=== PATIENT | male | born 1950 | race Caucasian/White ===

== ENCOUNTER 2020-02-18 13:49 | Emergency (ER) | payer MEDICARE, BC ==
[2020-02-18 14:04] VITALS: BP 162/102
[2020-02-18] MEDS ORDERED: Albuterol/Ipratropium 3.0-0.5 MG/3 ML Neb Soln NEB ONE (14:09)
[2020-02-18 14:46] VITALS: PULSE 77
--- NOTE | 2020-02-18 14:54 | CR ---
EXAMINATION: Chest 1V Frontal SEX: Male AGE: 69 years CLINICAL HISTORY: 69-year-old male emergency department complaining of shortness of breath (SOB) and cough. INTERPRETATION: Abnormal. 1. Small right pneumothorax (approximately 15-25%), under some tension i.e. associated with underlying lower lobe atelectasis and slight shift of the heart/mediastinal structures away, to the left. No comparison films immediately available. 2. Borderline cardiomegaly. Cardiac pacemaker but no alveolar edema or dependent effusion. 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 3. No lung mass, hilar lymphadenopathy or focal lobar pneumonia. 4. No atelectasis/collapse. No pneumothorax on the left or pneumomediastinum. CONCLUSION: Small PNEUMOTHORAX, right lung. No heart failure or lobar pneumonia.
[2020-02-18 15:33] LABS: BASE EXCESS ARTERIAL 8 mmol/L ((-2)-(+3)); BICARBONATE,ARTERIAL 34.4 mmol/L (22-26); O2 DELIVERY DEVICE NASAL CANNULA; O2 SATURATION ARTERIAL 80 % (95-100); PCO2 ARTERIAL 55 mmHg (35-45); PO2 ARTERIAL 59 mmHg (70-100)
[2020-02-18 15:35] LABS: ALLEN TEST POSITIVE; O2 FLOW RATE 3
--- NOTE | 2020-02-18 15:40 | EDM.PDOC ---
ED HPI GENERAL MEDICAL PROBLEM - General Chief Complaint: Respiratory Problem Stated Complaint: WEAK, COUGH, SOB Time Seen by Provider: 02/18/20 13:55 Source of Information: Reports: Patient, Family, RN History Limitations: Reports: No Limitations - History of Present Illness INITIAL COMMENTS - FREE TEXT/NARRATIVE: ED with c/o increased SOB for past 2 weeks, worse last night No fever. Hx CHF in past, Productive cough whitish phlegm, CP with coughing episodes. No recent travel. Hx Guillon Potter Generalized Pain Score (Numeric/FACES): 4 - Related Data Allergies Allergy/AdvReac Type Severity Reaction Status Date / Time No Known Allergies Allergy Verified 02/18/20 14:04 Home Meds: Home Meds Albuterol/Ipratropium [Combivent] 2 puff INH QID PRN 10/26/14 [History] Amiodarone HCl [Pacerone] 200 mg PO DAILY 10/26/14 [History] Aspirin/Calcium Carbonate/Mag [Aspirin Buffered 325 mg Tab] 325 mg PO DAILY [History] Cholecalciferol (Vitamin D3) [Delta D3] 400 unit PO DAILY 10/26/14 [History] Fludrocortisone [Florinef] 0.1 mg PO DAILY 10/26/14 [History] Glucosamine HCl [Vegetarian Glucosamine] 1,500 mg PO DAILY 10/26/14 [History] Losartan [Cozaar] 25 mg PO DAILY 10/26/14 [History] Metoprolol Succinate [Toprol Xl] 100 mg PO DAILY 10/26/14 [History] Multivits,Ca,Minerals/Iron/FA [Thera-Tabs M Cap[place]] 1 tab PO DAILY 10/26/14 [ History] Sertraline [Zoloft] 75 mg PO DAILY 10/26/14 [History] Zolpidem [Ambien] 10 mg PO BEDTIME 10/26/14 [History] atorvaSTATin [Lipitor] 40 mg PO BEDTIME 10/26/14 [History] Past Medical History HEENT History: Reports: Cataract, Macular Degeneration Cardiovascular History: Reports: Heart Failure, Hypertension, Pacemaker Respiratory History: Reports: COPD Gastrointestinal History: Reports: Cirrhosis Musculoskeletal History: Reports: Arthritis Neurological History: Reports: Other (See Below) Other Neuro History: Guillian-Potter - Infectious Disease History Infectious Disease History: Reports: Chicken Pox, Measles Social & Family History - Tobacco Use Smoking Status *Q: Current Every Day Smoker Years of Tobacco use: 50 Packs/Tins Daily: 0.5 - Caffeine Use Caffeine Use: Reports: Coffee - Recreational Drug Use Recreational Drug Use: No ED ROS GENERAL - Review of Systems Review Of Systems: Comprehensive ROS is negative, except as noted in HPI. ED EXAM, GENERAL - Physical Exam Exam: See Below Exam Limited By: No Limitations General Appearance: Alert, Mild Distress Eye Exam: Bilateral Eye: EOMI Ears: Normal External Exam, Normal TMs Nose: Normal Inspection Throat/Mouth: Normal Inspection, Normal Lips, Normal Voice Head: Atraumatic, Normocephalic Neck: Normal Inspection, Full Range of Motion Respiratory/Chest: No Respiratory Distress, Respiratory Distress, Decreased Breath Sounds, Rhonchi, Wheezing Cardiovascular: Normal Peripheral Pulses, Regular Rate, Rhythm, Irregularly Irregular (underlying sinus with multifocal PVC). No: No Edema GI/Abdominal: Normal Bowel Sounds Back Exam: Normal Inspection, Full Range of Motion Extremities: Normal Inspection, Normal Range of Motion, Pedal Edema (trace) Neurological: Alert, Oriented, Normal Cognition, Inattentive Psychiatric: Normal Affect Skin Exam: Warm, Dry, Pallor. No: Rash Course - Vital Signs Last Recorded V/S: Last Vital Signs Temp 97 F 02/18/20 13:52 Pulse 77 02/18/20 14:44 Resp 28 H 02/18/20 13:52 BP 162/102 H 02/18/20 13:52 Pulse Ox 100 02/18/20 13:52 - Orders/Labs/Meds Orders: Active Orders 24 hr Category Date Time Status EKG Documentation Completion [RC] URGENT Care 02/18/20 14:05 Active RT Aerosol Therapy [RC] ASDIRECTED Care 02/18/20 14:09 Active CULTURE BLOOD [BC] Stat Lab 02/18/20 14:20 Received CULTURE BLOOD [BC] Stat Lab 02/18/20 14:33 Received Blood Culture x2 Reflex Set [OM.PC] Stat Oth 02/18/20 14:05 Ordered Isolation [COMM] Routine Oth 02/18/20 14:11 Active Labs: Laboratory Tests 02/18/20 02/18/20 02/18/20 Range/Units 14:20 14:20 14:20 WBC 14.3 H (5.0-10.0) 10^3/uL RBC 4.76 (4.6-6.2) 10^6/uL Hgb 16.1 (14.0-18.0) g/dL Hct 48.4 (40.0-54.0) % MCV 101.7 H (80-100) fL MCH 33.8 (27.0-34.0) pg MCHC 33.3 (33.0-35.0) g/dL Plt Count 189 (150-450) 10^3/uL Lymph % (Auto) 7.5 L (20.5-50.1) % [place] % (Auto) 9.1 H (2-8) % Eos % (Auto) 1.1 (1.0-3.0) % Add Manual Diff Yes Neutrophils % (Manual) 72 (42-75) % Band Neutrophils % 5 % Lymphocytes % (Manual) 14 L (20-50) % Monocytes % (Manual) 8 (2-8) % Eosinophils % (Manual) 1 (1-3) % PT 12.5 H (9.0-12.0) SEC INR 1.3 H (0.9-1.2) D-Dimer, Quantitative 323 (0-400) ng/mL ABG pH (7.35-7.45) ABG pCO2 (35-45) mmHg ABG pO2 (70-100) mmHg ABG HCO3 (22-26) mmol/L ABG O2 Saturation (95-100) % ABG Base Excess ((-2)-(+3)) mmol/L Porter Test O2 Delivery Device Oxygen Flow Rate Sodium 143 (136-145) mmol/L Potassium 4.7 (3.5-5.1) mmol/L Chloride 101 (98-107) mmol/L Carbon Dioxide 38 H (21-32) mmol/L Anion Gap 8.7 (7-13) mEq/L BUN 15 (7-18) mg/dL Creatinine 1.32 H (0.70-1.30) mg/dL Est Cr Clr Drug Dosing 55.26 mL/min Estimated GFR (MDRD) 54 BUN/Creatinine Ratio 11.4 (No establ ref range) Glucose 131 H (74-99) mg/dL Lactic Acid (0.4-2.0) mmol/L Calcium 9.3 (8.5-10.1) mg/dL Total Bilirubin 0.7 (0.2-1.0) mg/dL AST 18 (15-37) U/L ALT 17 (16-63) U/L Alkaline Phosphatase 82 (46-116) U/L Troponin I < 0.017 (0.000-0.056) ng/mL B-Natriuretic Peptide 451 H (0-100) pg/ml Total Protein 8.3 H (6.4-8.2) g/dL Albumin 3.6 (3.4-5.0) g/dL Globulin 4.7 Albumin/Globulin Ratio 0.8 02/18/20 02/18/20 Range/Units 14:20 14:25 WBC (5.0-10.0) 10^3/uL RBC (4.6-6.2) 10^6/uL Hgb (14.0-18.0) g/dL Hct (40.0-54.0) % MCV (80-100) fL MCH (27.0-34.0) pg MCHC (33.0-35.0) g/dL Plt Count (150-450) 10^3/uL Lymph % (Auto) (20.5-50.1) % [place] % (Auto) (2-8) % Eos % (Auto) (1.0-3.0) % Add Manual Diff Neutrophils % (Manual) (42-75) % Band Neutrophils % % Lymphocytes % (Manual) (20-50) % Monocytes % (Manual) (2-8) % Eosinophils % (Manual) (1-3) % PT (9.0-12.0) SEC INR (0.9-1.2) D-Dimer, Quantitative (0-400) ng/mL ABG pH 7.41 (7.35-7.45) ABG pCO2 55 H (35-45) mmHg ABG pO2 59 L (70-100) mmHg ABG HCO3 34.4 H (22-26) mmol/L ABG O2 Saturation 80 L (95-100) % ABG Base Excess 8 H ((-2)-(+3)) mmol/L Porter Test Positive O2 Delivery Device Nasal cannula Oxygen Flow Rate 3 Sodium (136-145) mmol/L Potassium (3.5-5.1) mmol/L Chloride (98-107) mmol/L Carbon Dioxide (21-32) mmol/L Anion Gap (7-13) mEq/L BUN (7-18) mg/dL Creatinine (0.70-1.30) mg/dL Est Cr Clr Drug Dosing mL/min Estimated GFR (MDRD) BUN/Creatinine Ratio (No establ ref range) Glucose (74-99) mg/dL Lactic Acid 2.2 H* (0.4-2.0) mmol/L Calcium (8.5-10.1) mg/dL Total Bilirubin (0.2-1.0) mg/dL AST (15-37) U/L ALT (16-63) U/L Alkaline Phosphatase (46-116) U/L Troponin I (0.000-0.056) ng/mL B-Natriuretic Peptide (0-100) pg/ml Total Protein (6.4-8.2) g/dL Albumin (3.4-5.0) g/dL Globulin Albumin/Globulin Ratio Meds: Medications Discontinued Medications Generic Name Dose Route Start Last Admin Trade Name Freq PRN Reason Stop Dose Admin Albuterol/Ipratropium 3 ml 02/18/20 14:09 02/18/20 14:48 Duoneb 3.0-0.5 Mg/3 Ml NEB 02/18/20 14:10 3 ml ONETIME ONE Administration Methylprednisolone Sodium Succinate 125 mg 02/18/20 15:41 02/18/20 15:45 Solu-Medrol IVPUSH 02/18/20 15:42 125 mg ONETIME ONE Administration - Re-Assessments/Exams Free Text/Narrative Re-Assessment/Exam: 02/18/20 15:[address] Bell Hare. ED Dr Villaseñor accepting. Tx via [facility]. 02/18/20 16:27 Patient stable F here, Tx to [facility]. Departure - Departure Time of Disposition: 16:27 Disposition: DC/Tfer to Acute Hospital 02 Condition: Undetermined Clinical Impression: Hypoxia, Pneumothorax on right Congestive heart failure Qualifiers: Heart failure type: other Qualified Code(s): I50.9 - Heart failure, unspecified - Discharge Information *PRESCRIPTION DRUG MONITORING PROGRAM REVIEWED*: No *COPY OF PRESCRIPTION DRUG MONITORING REPORT IN PATIENT KASHMIR: No Forms: ED Department Discharge, Interfacility Transfer EMTALA Sepsis Event Note - Evaluation Sepsis Screening Result: No Definite Risk - Focused Exam Vital Signs: Vital Signs Temp Pulse Resp BP Pulse Ox 02/18/20 14:44 77 02/18/20 13:52 97 F 89 28 H 162/102 H 100 Date Exam was Performed: 02/18/20 Time Exam was Performed: 16:27 - My Orders Last 24 Hours: My Active Orders 02/18/20 14:05 EKG Documentation Completion [RC] URGENT Blood Culture x2 Reflex Set [OM.PC] Stat 02/18/20 14:09 RT Aerosol Therapy [RC] ASDIRECTED 02/18/20 14:11 Isolation [COMM] Routine 02/18/20 14:20 CULTURE BLOOD [BC] Stat 02/18/20 14:33 CULTURE BLOOD [BC] Stat - Assessment/Plan Last 24 Hours: My Active Orders 02/18/20 14:05 EKG Documentation Completion [RC] URGENT Blood Culture x2 Reflex Set [OM.PC] Stat 02/18/20 14:09 RT Aerosol Therapy [RC] ASDIRECTED 02/18/20 14:11 Isolation [COMM] Routine 02/18/20 14:20 CULTURE BLOOD [BC] Stat 02/18/20 14:33 CULTURE BLOOD [BC] Stat
[2020-02-18] MEDS ORDERED: methylPREDNISolone Sodium Succinate 125 MG/2 ML SDV IVPUSH ONE (15:41)
[2020-02-18 15:48] LABS: ANION GAP 8.7 mEq/L (7-13); CHLORIDE,CL 101 mmol/L (98-107); SODIUM,NA 143 mmol/L (136-145)
== END 2020-02-18 16:28 ==
LOC: DL.ED 13:49
DX: J93.9 Pneumothorax, unspecified (principal); I11.0 Hypertensive heart disease with heart failure; I50.9 Heart failure, unspecified; R09.02 Hypoxemia; F17.210 Nicotine dependence, cigarettes, uncomplicated; Z79.82 Long term (current) use of aspirin; Z79.899 Other long term (current) drug therapy
CPT/HCPCS: 36415; 36600; 71045; 80053; 82803; 83605; 83880; 84484; 85025; 85379; 85610; 87040; 87804; 93005; 94640; 96374; 99284; 99285-25; J2930; J7620-GY

== ENCOUNTER 2021-06-15 06:21 | Day surgery (SDC) | payer MEDICARE, BC ==
[~2021-06-15 06:21] MED LIST: Dextrose 5%-0.45% NaCl 1,000 ML IV SCH; Sodium Chloride 0.9% 10 ML Syringe FLUSH PRN
[2021-06-15] MEDS ORDERED: fentaNYL 100 MCG/2 ML SDV IV ONE ×4 (06:22→07:46)
[2021-06-15] MEDS ORDERED: Midazolam 1 MG/ML 2 ML SDV IV ONE ×8 (06:22→07:57)
[2021-06-15] MEDS ORDERED: Midazolam 1 MG/ML 2 ML SDV ONE (06:34)
[2021-06-15] MEDS ORDERED: fentaNYL 100 MCG/2 ML SDV ONE (06:34)
[2021-06-15 08:10] VITALS: BP 124/70
[2021-06-15 08:12] VITALS: PULSE 62
--- NOTE | 2021-06-15 09:00 | OR ---
DATE: 06/15/2021 PROCEDURE: Total colonoscopy. INSTRUMENT USED: PCF-H190DL Olympus video colonoscope. PREMEDICATIONS: Fentanyl 100 mcg intravenous, Versed 4 mg intravenous, nasal O2 cannula. The procedure was done under pulse oximetry, BP recording, and youth nutritional monitor. INDICATION: Screening colonoscopic examination is done for detection of any polypoid lesions and removal, endoscopic hemostasis therapy if needed. DESCRIPTION OF PROCEDURE: Initial rectal exam was unremarkable. Rigid anoscopy was normal. The colonoscope was passed with ease. Numerous scattered wide- mouthed diverticula were noted, more so in the distal left colon along with deformity. The scope was passed with relative ease up to the ileocecal area. Photographs were taken of the normal-appearing cecum identified by double bulged ileocecal folds. No bleeding was noted from any of the visualized areas at the commencement of the examination. The bowel preparation was found to be adequate, [place] scale 2 in left and right colon, 3 in transverse colon, total score 7. No stricture. No vascular ectasia. No large isolated ulcerations seen. No evidence of diffuse inflammatory bowel disease in the form of friability, contact bleeding, or ulcerations. No polyp or tumor mass identified. Probing the proximal sides of folds and flexures using adequate distention and clearing up the stool material, withdrawal of the scope was made, cecum to rectum time over 6 minutes. No bleeding was noted from any of the visualized areas at the completion of examination. IMPRESSION: Diverticulosis. The patient tolerated the procedure well. [facility] /[id number]
== END 2021-06-15 10:15 | disposition home or self-care (01) ==
LOC: DL.ENDO 06:21
PROVIDERS: ATTEND Internal Medicine Gastroenterology
DX: Z12.11 Encounter for screening for malignant neoplasm of colon (principal); K57.30 Diverticulosis of large intestine without perforation or abscess without bleeding; I10 Essential (primary) hypertension; I25.10 Atherosclerotic heart disease of native coronary artery without angina pectoris; I48.0 Paroxysmal atrial fibrillation; F17.200 Nicotine dependence, unspecified, uncomplicated; J44.9 Chronic obstructive pulmonary disease, unspecified; Z79.899 Other long term (current) drug therapy; Z95.0 Presence of cardiac pacemaker
CPT/HCPCS: G0121; J2250; J3010; J7042